=== PATIENT | male | born 1995 | race Caucasian/White ===

== ENCOUNTER 2019-02-01 19:32 | Emergency (ER) | payer SELFPAY ==
[~2019-02-01] VITALS: Ht 182.9 cm; Wt 130.0 kg
[~2019-02-01 19:32] MED LIST: BUPROPION150 M1 PO; CLONIDINE0.1 MG PO; LEXAPRO10 MG PO; METFORMIN500 M1 PO; METFORMIN500 MG PO; ONDANSETRON4 MG PO; ONE TOUC7 TOP; ONE TOUC7 XX; ONE TOUCH ULTRA 100 XX; ONE TOUCH ULTRA LANC XX; TET/DIP TOX1 ML IM
[2019-02-01] MEDS ORDERED: NAPROSYN500 MG PO (20:41)
[2019-02-01 20:58] VITALS: BP 147/89
== END 2019-02-01 20:58 | disposition home or self-care (01) | DRG 556 ==
LOC: ED 19:32
DX: M79.10 Myalgia, unspecified site (principal)